=== PATIENT | male | born 2000 | race Caucasian/White ===

== ENCOUNTER 2020-07-20 20:18 | Observation (INO) ==
[2020-07-20] MEDS ORDERED: ONDANSETRON INJ 2 MG/ML 2 ML VIAL IV STA (21:11)
[2020-07-20] MEDS ORDERED: KETOROLAC TROMETHAMINE 15 MG/ML VIAL IV STA (21:11)
[2020-07-20] MEDS ORDERED: MoRPHine SULFATE 4 MG/ML 1 ML CARP\\VIAL IV STA (21:11)
--- NOTE | 2020-07-20 21:14 | Emergency Department Note ---
Impression & Plan RLQ abdominal pain, Appendicitis, Leukocytosis ED Provider Note NAME: SABINA CRANE AGE: 20 SEX: M : 2000 ARRIVES VIA: Walk-In INFORMANT: [Patient] ED PROVIDER(S): [Frederic Dai MD] CHIEF COMPLAINT: Abdominal pain HISTORY OF PRESENT ILLNESS: The patient is a 20-year-old male presents to the ED with lower abdominal pain, mostly right-sided. Patient has had the pain for 3 or 4 days. He has pain to move and to flex the abdominal muscles. The pain is a 7 on a scale 1 out of 10. The patient felt that he was constipated. He has been using MiraLAX without much of a result. He has some nausea but he took a Zofran at home and this helped. There has been no fever although he has had some hot and cold flashes. No urinary complaints. No cough or cold or congestion. No Covid exposures. He has no surgical history. REVIEW OF SYSTEMS: See HPI for pertinent positives and negatives. A total of ten systems were reviewed and were otherwise negative. PMHx/PSHx: See Below SOCIAL HISTORY: See Below. PHYSICAL EXAM: GENERAL: Patient is in mild distress from pain. HEENT: No acute trauma, normocephalic atraumatic, mucous membranes moist, no nasal congestion, no scleral icterus. NECK: No stridor, no adenopathy, no meningismus, trachea is midline. LUNGS: Clear to auscultation bilaterally, no wheeze, no rhonchi, breath sounds equal. HEART: Without murmurs gallops or rubs, regular rate and rhythm. ABDOMEN: Soft, there is localized peritonitis in the right lower quadrant, there is some mild pain to palpate the left lower quadrant, bowel sounds positive, no hernias. EXTREMITIES: No cyanosis or edema, full range of motion of all the joints without pain or difficulty, no signs for acute trauma. NEUROLOGIC: Oriented x 3, no acute motor or sensory deficits, no focal weakness. SKIN: No rash, no jaundice, no diaphoresis. Groin: He is circumcised, no scrotal erythema or testicular soreness. DIFFERENTIAL DIAGNOSIS: Appendicitis, testicular torsion, infections, diverticulitis, UTI, obstruction, mesenteric ischemia, aortic pathology, inflammatory bowel disease, renal colic, PUD, pancreatitis, biliary pathology, hernia, volvulus, constipation, as well as other pathologies. EMERGENCY DEPARTMENT COURSE/PROCEDURES: MEDICAL DECISION MAKING: There is a moderate leukocytosis at 18,000, this would be consistent with infection. There is a normal hemoglobin and platelet count. No significant electrolyte abnormality or kidney failure. No worrisome liver enzyme elevation. No evidence for pancreatitis. Abdominal and pelvis CT shows evidence for an enlarged appendix with an appendicolith. The CT findings were consistent with acute appendicitis. No abscess seen. Some scant free fluid was noted. On exam, the patient had localized peritonitis in the right lower quadrant. Patient received IV morphine for pain, IV Zofran for nausea. He received 1 L of IV saline for hydration. He was given IV Toradol for pain control, he received IV Zosyn as antibiotic coverage. He requested a dose of antianxiety medication as he carries a history of anxiety--he received 1 mg of IV Ativan. I spoke to the patient about his findings, I did speak with case management. The patient is going require surgical intervention. The on-call surgeon was consulted. Past Med/Surg History Medical History Anxiety Social History Smoking Status: Current every day smoker Tobacco Type: Cigarettes Feels Safe at Home: Yes Allergies Allergies Allergy/AdvReac Type Severity Reaction Status Date / Time BEES Allergy Severe Anaphylaxis Uncoded 07/20/20 22:45 Home Meds Home Medications Medication Instructions Recorded Confirmed citalopram 0 mg PO DAILY 07/20/20 07/20/20 hydroxyzine pamoate 25 mg PO DAILY PRN 07/20/20 07/20/20 methocarbamol 500 mg PO UD PRN 07/20/20 07/20/20 polyethylene glycol 3350 [Miralax] 17 g PO DAILY PRN 07/20/20 07/20/20 Results & Data (ED) Vital Signs Vital Signs - 24 hr 07/20/20 20:23 07/20/20 21:32 07/20/20 23:01 Temperature 37.0 C Temperature Source Oral Pulse Rate 78 Pulse Rate [Finger] 68 77 Respiratory Rate 20 20 16 Respiratory Effort / Characteristics Non-Labored Spontaneous Respiratory Depth Normal Normal Normal Respiratory Pattern Agonal Blood Pressure 127/74 Blood Pressure [Left Arm] 138/73 127/56 L Blood Pressure Mean 91 Blood Pressure Mean [Left Arm] 94 79 Pulse Oximetry 97 100 98 Oxygen Delivery Method Room Air Room Air Room Air Sepsis Recent Fever Within 48 Hours No Sepsis New/Unexplained Change in Mental Status N/A Sepsis Action Taken by Nursing No Action Required Home Medications Current Medication List: was personally reviewed by me Laboratory Data Attestation: I reviewed the patient's lab results. Result diagrams: 07/20/20 21:07/20/20 21: Lab Results 07/20/20 07/20/20 Range/Units 21: 21: WBC 18.01 H (4.8-10.8) K/uL RBC 6.08 (4.7-6.1) M/uL Hgb 18.0 (14.0-18.0) g/dL Hct 50.8 (42-52) % MCV 83.6 (80-100) fL MCH 29.6 (25-34) pg MCHC 35.4 (32-36) g/dL RDW Std Deviation 40.1 (36.4-46.3) fL RDW Coeff of Mimi 13.2 (11.5-14.5) % Plt Count 233 (130-400) K/uL MPV 11.1 H (7.4-10.4) fL Immature Gran % (Auto) 0.2 % Neut % (Auto) 71.9 % Lymph % (Auto) 17.5 % [place] % (Auto) 8.8 % Eos % (Auto) 1.4 % Baso % (Auto) 0.2 % Neut # (Auto) 12.93 H (1.4-6.5) K/uL Lymph # (Auto) 3.16 (1.2-3.4) K/uL [place] # (Auto) 1.59 H (0.11-0.59) K/uL Eos # (Auto) 0.26 (0-0.5) K/uL Baso # (Auto) 0.03 (0-0.2) K/uL Immature Gran # (Auto) 0.04 H (0.00-0.02) K/uL Sodium 138 (136-145) mmol/L Potassium 4.1 (3.5-5.1) mmol/L Chloride 104 (98-107) mmol/L Carbon Dioxide 28 (21-32) mmol/L Anion Gap 6.0 (3-11) BUN 11 (7-18) mg/dl Creatinine 1.17 (0.6-1.4) mg/dl Est Cr Clr Drug Dosing 118.1 ml/min Est GFR ( Amer) 102.7 Est GFR (Non-Af Amer) 88.6 BUN/Creatinine Ratio 9.1 L (10-20) Glucose 93 (70-99) mg/dl Calcium 10.1 (8.5-10.1) mg/dl Total Bilirubin 1.0 (0.2-1) mg/dl AST 11 L (15-37) U/L ALT 18 (12-78) U/L Alkaline Phosphatase 100 (45-117) U/L Total Protein 9.0 H (6.4-8.2) gm/dl Albumin 4.6 (3.4-5.0) gm/dl Globulin 4.4 H (2.5-4.0) gm/dl Albumin/Globulin Ratio 1.0 (0.9-2) Lipase 74 (73-393) U/L Administered Medications Piperacillin Sod/Tazobactam Sod (Zosyn) 4.5 gm in 120 mls @ 240 mls/hr IV NOW ONE Stop: 07/20/20 23:22 Last Admin: 07/20/20 23:00 Dose: 240 mls/hr Documented by: [id number] Discontinued Medications Sodium Chloride (Nss 1000ml) 1,000 mls @ 999 mls/hr IV .Q1H1M REFUGIO Stop: 07/20/20 22:15 Last Infusion: 07/20/20 22:29 Dose: 0 mls/hr Documented by: [id number] Admin: 07/20/20 21:28 Dose: 999 mls/hr Documented by: [id number] Ioversol (Ioversol 100ml) 93 ml IV ONCE ONE Stop: 07/20/20 22:31 Last Admin: 07/20/20 22:30 Dose: 93 ml Documented by: [id number] Ketorolac Tromethamine (Ketorolac Tromethamine 15 Mg/Ml Vial) 15 mg IV NOW STA Stop: 07/20/20 21:12 Last Admin: 07/20/20 21:29 Dose: 15 mg Documented by: [id number] Morphine Sulfate (Morphine Sulfate 4 Mg/Ml 1 Ml Carp\Vial) 4 mg IV NOW STA Stop: 02/18/21 21:12 Last Admin: 07/20/20 21:29 Dose: 4 mg Documented by: [id number] Ondansetron HCl (Ondansetron Inj 2 Mg/Ml 2 Ml Vial) 4 mg IV NOW STA Stop: 07/20/20 21:12 Last Admin: 07/20/20 21:29 Dose: 4 mg Documented by: [id number] Imaging Data Radiologist's Impression: Abdominal and pelvis CT: There is some splenomegaly. There is a coarse right adrenal calcification. There is an enlarged fluid filled appendix measuring 17 mm with a 6 mm appendicolith with some periap pendiceal stranding. There is thickening of the adjacent cecum and distal ileum. There is mild free fluid in the lower pelvis, no discrete periappendiceal abscess. Discharge Plan Visit Data Chief Complaint: Constipation Stated Complaint: UNABLE TO VOID ED Provider: Frederic Dai Discharge Problem: RLQ abdominal pain, Appendicitis, Leukocytosis Patient Disposition: Admitted As Inpatient Condition: Fair Forms Stand Alone Forms: [facility] [employer] Prescriptions Prescriptions: No Action methocarbamol 500 mg Tablet 500 mg PO UD PRN (Reason: Muscle Pain) RF: 0 polyethylene glycol 3350 [Miralax] 17 gram Powder In Packet 17 g PO DAILY PRN (Reason: Constipation) RF: 0 citalopram 10 mg Tablet 0 mg PO DAILY RF: 0 hydroxyzine pamoate 25 mg Capsule 25 mg PO DAILY PRN (Reason: Anxiety) RF: 0 Referrals Referrals: Vin Panda MD [Primary Care Provider] - Discharge Problem: Appendicitis Qualifiers: Appendicitis type: acute appendicitis Acute appendicitis type: with localized peritonitis Appendicitis gangrene presence: unspecified whether gangrene present Appendicitis perforation presence: without perforation Appendicitis abscess presence: without abscess Qualified Code(s): K35.30 - Acute appendicitis with localized peritonitis, without perforation or gangrene Leukocytosis Qualifiers: Leukocytosis type: unspecified Qualified Code(s): D72.829 - Elevated white blood cell count, unspecified
[2020-07-20] MEDS ORDERED: SODIUM CHLORIDE 0.9% 1000ML 1,000 ML IV SCH (21:15)
[2020-07-20 21:47] LABS: Basophils # (auto) 0.03 K/uL (0-0.2); Basophils % (auto) 0.2 %; Eosinophils # (auto) 0.26 K/uL (0-0.5); Eosinophils % (auto) 1.4 %; Hematocrit (blood only) 50.8 % (42-52); Immature Granulocytes # (auto) 0.04 K/uL (0.00-0.02); Immature Granulocytes % (auto) 0.2 %; Lymphocytes # (auto) 3.16 K/uL (1.2-3.4); Lymphocytes % (auto) 17.5 %; Mean Corpuscular Hemoglobin 29.6 pg (25-34); Mean Corpuscular Hgb Conc 35.4 g/dL (32-36); Mean Corpuscular Volume 83.6 fL (80-100); Mean Platelet Volume 11.1 fL (7.4-10.4); Monocytes # (auto) 1.59 K/uL (0.11-0.59); Monocytes % (auto) 8.8 %; Neutrophils # (auto) 12.93 K/uL (1.4-6.5); Neutrophils % (auto) 71.9 %; Platelet Count 233 K/uL (130-400); RDW Coefficient of Variation 13.2 % (11.5-14.5); RDW Standard Deviation 40.1 fL (36.4-46.3); Red Blood Count 6.08 M/uL (4.7-6.1); White Blood Count 18.01 K/uL (4.8-10.8)
[2020-07-20 22:05] LABS: Albumin Level 4.6 gm/dl (3.4-5.0); BUN Creatinine Ratio 9.1 (10-20); Calcium 10.1 mg/dl (8.5-10.1); Creatinine Clr Calc Pharmacy 118.1 ml/min; Est GFR (African American) 102.7; Est GFR (Non-African American) 88.6; Potassium 4.1 mmol/L (3.5-5.1)
[2020-07-20 22:08] LABS: Globulin 4.4 gm/dl (2.5-4.0)
[2020-07-20] MEDS ORDERED: OPTIRAY 320 100ml IV ONE (22:30)
[2020-07-20] MEDS ORDERED: PIPERACILL/TAZOBAC CONSULT ACTIVE PRN (22:53)
[2020-07-20] MEDS ORDERED: PIPERACILLIN/TAZOBACTAM 4.5 GM/120 ML BAG IV ONE (22:53)
[2020-07-20] MEDS ORDERED: LORazepam 1 MG/2 ML VIAL IV STA (23:04)
[2020-07-20] MEDS ORDERED: MEPERIDINE HCL 25 MG/ML CARP/VIAL IV PRN (23:55)
[2020-07-20] MEDS ORDERED: LABETALOL HCL IV 5 MG/ML 20ML IV PRN (23:55)
[2020-07-20] MEDS ORDERED: PHENYLEPHRINE 100MCG/ML 5ML SYR IV PRN (23:55)
[2020-07-20] MEDS ORDERED: HYDROmorphone INJ 1 MG/ML SYRINGE IV PRN (23:55)
[2020-07-20] MEDS ORDERED: ATROPINE SULFATE 0.1 MG/ML 10ML SYR IV PRN (23:55)
[2020-07-20] MEDS ORDERED: ONDANSETRON INJ 2 MG/ML 2 ML VIAL IV PRN (23:55)
[2020-07-20] MEDS ORDERED: ePHEDrine sulfate 50 MG/ML AMP IV PRN (23:55)
[2020-07-20] MEDS ORDERED: fentaNYL citrate 100 MCG/2 ML VIAL IV PRN (23:55)
[2020-07-21] MEDS ORDERED: BUPIVACAINE/EPINEPHRINE 0.5% MPF 1:200,000 30 ML VIAL ONE
--- NOTE | 2020-07-21 00:03 | History & Physical Report ---
Date of Service July 20, 2020 Assessment & Plan (1) Appendicitis: -Admit to surgery -Keep NPO -IVF -CT images and results reviewed personally -To OR today for laparoscopic appendectomy, possible open -Consent obtained, risks discussed including bleeding, infection, leak, abscess, ileus History of Present Illness Chief Complaint: Abdominal pain Primary Care Provider: Vin Panda MD This is a 20 yo male who presents for evaluation of abdominal pain. He came to the ER with 3-4 days of abdominal pain and constipation. He describes pain as right sided, sharp, no radiation. He was taking Miralax which did not help him have a BM. +Subjective fevers and chills. No N/V. No dysuria. No melena or hematochezia. Allergies Allergy/AdvReac Type Severity Reaction Status Date / Time BEES Allergy Severe Anaphylaxis Uncoded 07/20/20 22:45 Home Medications Medication Instructions Recorded Confirmed Type citalopram 0 mg PO DAILY 07/20/20 07/20/20 History hydroxyzine pamoate 25 mg PO DAILY PRN 07/20/20 07/20/20 History methocarbamol 500 mg PO UD PRN 07/20/20 07/20/20 History polyethylene glycol 3350 [Miralax] 17 g PO DAILY PRN 07/20/20 07/20/20 History Past Med/Surg History Medical History Anxiety Smoker Social History Smoking Status: Current every day smoker Tobacco Type: Cigarettes Feels Safe at Home: Yes Review of Systems Constitutional: + fever and + chills Eyes: no worsening vision Ear, Nose, Mouth, Throat: no ear pain and no hearing loss Respiratory: no cough and no dyspnea Cardiovascular: no chest pain and no dyspnea on exertion Gastrointestinal: + abdominal pain and + constipation; no nausea, no vomiting, no diarrhea/loose stools, no blood in stools and no melena Genitourinary: no dysuria and no difficulty urinating Musculoskeletal: no back pain and no neck pain Integumentary: no rash and no lesions Neurologic: no falls, no paralysis and no numbness Psychiatric: + anxiety; no behavioral changes and no depression Hematologic / Lymphatic: no easy bleeding and no easy bruising Physical Exam Constitutional: WD/WN, vitals as above Eyes: PERRL, conjunctivae normal, anicteric sclerae ENMT: external ear and nose normal, oropharynx normal Neck: trachea midline, no thyromegaly Respiratory: normal respiratory effort, lungs clear to auscultation Cardiovascular: RRR, no murmur, no edema Gastrointestinal (Abdomen): Inspection/Auscultation: abdomen normal to inspection; abdomen not distended Percussion/Palpation: + abdomen tender (RLQ, +McBurney's), + guarding and abdomen soft; abdomen not rigid Musculoskeletal: no cyanosis or clubbing, extremities motor strength 5/5 Skin: no rashes, warm and dry Neurologic: PERRL, EOMI, accommodation nl, no face palsy, no dysarthria Psychiatric: A+Ox3, euthymic affect Lymphatic: no inguinal lymphadenopathy Results & Data Results & Data ([facility]) Vital Signs (Past 12 Hours) Vital Signs Temp Pulse Pulse Resp BP BP Pulse Ox 07/20/20 23:01 77 16 127/56 L 98 07/20/20 21:32 68 20 138/73 100 07/20/20 20:23 37.0 C 78 20 127/[address] A/P 07/20/20 17mm dilated fluid filled appendix with appendicolith and josselyn-appendiceal fat stranding consistent with acute appendicitis PG Care Time/CCT Total # of Minutes Spent Total Time Spent with Patient: Total time spent is greater than 50% in coordination of care (as documented) at patient's floor/unit and/or counseling patient: Coding Level of Care Code 72179 OBS Care - Level 2 Diagnoses Appendicitis K35.30 Acute appendicitis type: with localized peritonitis Appendicitis abscess presence: without abscess Appendicitis gangrene presence: unspecified whether gangrene present Appendicitis perforation presence: unspecified whether perforation present Appendicitis type: acute appendicitis (1) Appendicitis Acute appendicitis type: with localized peritonitis Appendicitis abscess presence: without abscess Appendicitis gangrene presence: unspecified whether gangrene present Appendicitis perforation presence: unspecified whether perforation present Appendicitis type: acute appendicitis Qualified Code(s): K35.30 - Acute appendicitis with localized peritonitis, without perforation or gangrene
--- NOTE | 2020-07-21 00:16 | Anesthesiology Consultation ---
Date of Service July 21, 2020 Covid 19 negative today. Assessment & Plan (1) Encounter for pre-operative examination: Chart Review Chart Review: Acceptable Risk for Surgery and Patient NOT seen in Pre Admission Testing Consults Requested none History Surgery Operation Date: 07/20/20 23:55 Proposed Procedures p Laparoscopic Appendectomy - Omero Barnett DO Height/Weight Height: 5 ft 11 in Weight: 96.1 kg Allergies Allergy/AdvReac Type Severity Reaction Status Date / Time BEES Allergy Severe Anaphylaxis Uncoded 07/20/20 22:45 Medications Home Medications Medication Instructions Recorded Confirmed Last Taken citalopram 0 mg PO DAILY 07/20/20 07/20/20 Unknown hydroxyzine pamoate 25 mg PO DAILY PRN 07/20/20 07/20/20 Unknown methocarbamol 500 mg PO UD PRN 07/20/20 07/20/20 Unknown polyethylene glycol 3350 [Miralax] 17 g PO DAILY PRN 07/20/20 07/20/20 Unknown NPO Date Last Intake of Fluids: 07/20/20 Time Last Intake of Fluids: 20:00 Date Last Intake of Solids: 07/19/20 Time Last Intake of Solids: 22:00 Past Medical History Medical History Anxiety Smoker Social History Smoking Status: Current every day smoker Physical Exam Vital Signs Last Vital Signs Temp 37.0 C 07/20/20 20:23 Pulse 68 07/21/20 00:10 Resp 16 07/21/20 00:10 BP 114/76 07/21/20 00:10 Pulse Ox 100 07/21/20 00:10 Testing Laboratory Results 07/20/20 21:26 07/20/20 21:26
[2020-07-21] MEDS ORDERED: MIDAZOLAM HCL 1 MG/ML 2ML VIAL ONE (00:18)
[2020-07-21] MEDS ORDERED: fentaNYL citrate 100 MCG/2 ML VIAL ONE ×3 (00:19→03:01)
[2020-07-21] MEDS ORDERED: LIDOCAINE HCL 2% 2 ML VIAL/AMP(20MG/ML) INFIL ONE (00:22)
[2020-07-21] MEDS ORDERED: SUCCINYLCHOLINE CHLORIDE 20 MG/ML 10 ML VIAL IV ONE (00:22)
[2020-07-21] MEDS ORDERED: PROPOFOL IV EMULSION 10 MG/ML 20 ML VIAL IV ONE (00:22)
[2020-07-21] MEDS ORDERED: ONDANSETRON INJ 2 MG/ML 2 ML VIAL ONE (00:32)
[2020-07-21] MEDS ORDERED: DEXAMETHASONE SOD INJ 4 MG/ML VIAL ONE (00:32)
[2020-07-21] MEDS ORDERED: ROCURONIUM BROMIDE 10 MG/ML 5 ML VIAL IV ONE (00:32)
[2020-07-21] MEDS ORDERED: NEOSTIGMINE METHYLSULFATE 5 MG/5 ML SYR ONE (01:13)
[2020-07-21] MEDS ORDERED: GLYCOPYRROLATE 0.2 MG/ML VIAL ONE ×2 (01:13→02:22)
[2020-07-21] MEDS ORDERED: KETOROLAC 30 MG/ML VIAL ONE (02:27)
--- NOTE | 2020-07-21 02:37 | Post Operative Brief Note ---
PG Immediate Post Op with CF Date of Surgery July 21, 2020 Pre & Post Diagnosis Operation Date: 07/20/20 23:55 Pre-Op Diagnosis: Acute Appendicitis Post-Op Diagnosis: Acute Gangrenous Appendicitis with perforation I identified the patient and participated in the time-out.: Yes Procedure Operation Date: 07/20/20 23:55 Actual Procedures p Laparoscopic Appendectomy(Not Applicable) - Omero Barnett DO Surgeon Omero Barnett DO Seed Analysis Laboratory Assistant None Estimated Blood Loss 5 Findings See Below Acutely inflamed, dilated, gangrenous appendix with perforation of the mid portion of the appendix Fluids 1500ml crystalloid Specimens Specimen Description: A: Appendix Drains Rose Catheter Anesthesia Type General Complications none Disposition Disposition: Recovery Room
--- NOTE | 2020-07-21 02:40 | Operative Report ---
PG Post Operative Report Pre & Post Diagnosis Operation Date: 07/20/20 23:55 Pre-Op Diagnosis: Acute Appendicitis Post-Op Diagnosis: Acute Gangrenous Appendicitis with perforation I identified the patient and participated in the time-out.: Yes Procedure Operation Date: 07/20/20 23:55 Actual Procedures p Laparoscopic Appendectomy(Not Applicable) - Omero Barnett DO Surgeon Omero Barnett DO Tobacco Drummer None Estimated Blood Loss 5 Findings See Below Acutely inflamed, dilated gangrenous appendix with perforation Fluids 1500mL Crystalloid Specimens Appendix to pathology Drains None Anesthesia Type General Complications none Disposition Disposition: Recovery Room Indications 20 yo male with 3-4 days of abdominal pain and clinical and CT evidence of acute appendicitis Description of Procedure The patient was brought to the OR and placed in the supine position and SCD's placed. At this time he underwent general endotracheal anesthesia without incident. At this time a Rose catheter was placed under sterile conditions. His abdomen was prepped and draped in the usual sterile fashion. He was given appropriate pre-operative antibiotics. A timeout was called, the procedure was verified as Laparoscopic appendectomy, possible open. Surgical, anesthesia and nursing teams agreed and the procedure was begun. After injection of 0.25% Marcaine with epinephrine, a supraumbilical incision was made using a #11 blade scalpel and carried down to the fascia with a hemostat. The abdomen was then elevated with towel clamps and entered using the Veress needle confirming position using the saline drop test. Pneumoperitoneum was established and 5mm trocar was placed. Laparoscope was introduced. No injury was seen from our entrance to the abdomen. At this time a 5mm suprapubic port and 12mm LLQ port were placed under direct visualization. The patient was placed in Trendelenburg and rotated to the left. At this time the appendix was visualized and the tip was freed and elevated toward the abdominal wall. The appendix was inflamed, di lated and had a jonny perforation of the proximal third on the antimesenteric side. A window was created in the mesoappendix at the base of the appendix. A 45mm purple load stapler was then fired across the base of the appendix which appeared healthy. The mesoappendix was then taken using Harmonic device. The appendix was then placed in an Endocatch bag and removed through the LLQ port site. Staple line was inspected and was intact. Hemostasis was complete. A small amount of purulent fluid was suctioned out of the RLQ and pelvis. At this point the omentum was placed over the staple line. The 12 mm port was then closed at the fascial level using a 0 Vicryl suture using the suture passer. All ports were removed under direct visualization and no bleeding was noted. The abdomen was desufflated and the skin was closed using 4-0 Monocryl in a subcuticular fashion. Sterile dressings were applied. Rose catheter was removed. The patient was then awakened from anesthesia having remained stable throughout the entire case and transported to PACU. All needle and sponge counts were correct x 2. I attest to the content of the Intraoperative Record and any orders documented therein. Any exceptions are noted below.
--- NOTE | 2020-07-21 02:59 | Anesthesiology Progress Note ---
Date of Service July 21, 2020 Anesthesia Post Procedure Vital Signs Vital Signs: Temp Pulse Pulse Resp BP BP Pulse Ox 07/21/20 02:55 36.9 C 89 20 145/72 H 100 07/21/20 00:10 68 16 114/76 100 07/20/20 23:01 77 16 127/56 L 98 07/20/20 21:32 68 20 138/73 100 07/20/20 20:23 37.0 C 78 20 127/74 97 Pain Intensity Abdomen: Pain Intensity: 2 Transfer of Care Handoff Completed per policy Notes Mental Status: alert / awake / arousable Patient Amnestic to Procedure: Yes Nausea / Vomiting: adequately controlled Pain: adequately controlled Airway Patency, RR, SpO2: stable & adequate BP & HR: stable & adequate Hydration State: stable & adequate Anesthetic Complications: no major complications apparent and Pt Satisfied with anesthetic care
[2020-07-21] MEDS ORDERED: HYDROmorphone INJ 0.5 MG/0.5 ML SYR ONE (03:27)
[2020-07-21] MEDS ORDERED: MoRPHine SULFATE 2 MG/ML CARP IV PRN (03:49)
[2020-07-21] MEDS ORDERED: MoRPHine SULFATE 4 MG/ML 1 ML CARP\\VIAL IV PRN (03:49)
[2020-07-21] MEDS ORDERED: ACETAMINOPHEN 325 MG TAB PO PRN (03:49)
[2020-07-21] MEDS ORDERED: PIPERACILL/TAZOBAC CONSULT ACTIVE PRN (03:49)
[2020-07-21] MEDS ORDERED: ONDANSETRON INJ 2 MG/ML 2 ML VIAL IV PRN (03:49)
[2020-07-21] MEDS ORDERED: PIPERACILLIN/TAZOBACTAM 3.375 GM in DEXTROSE 5% 100 ML IV ONE (04:00)
[2020-07-21] MEDS: LACTATED RINGER'S 1,000 ML IV SCH ×2 (04:48→14:38)
[2020-07-21] MEDS: PIPERACILLIN/TAZOBACTAM 3.375 GM in DEXTROSE 5% 100 ML IV SCH ×3 (05:01→20:27)
[2020-07-21] MEDS ORDERED: LORazepam 1 MG TAB PO PRN (07:27)
[2020-07-21] MEDS: oxyCODONE HCL IR 5 MG TAB (IMMEDIATE RELEASE) PO PRN (07:28)
--- NOTE | 2020-07-21 07:28 | CT Scan Report ---
ABDOMEN AND PELVIS CT WITH IV CONTRAST CT DOSE: 453.90 mGy.cm HISTORY: Right lower quadrant abdominal pain. TECHNIQUE: Multiaxial CT images of the abdomen and pelvis were performed following the use of intrave nous contrast. A dose lowering technique was utilized adhering to the principles of ALARA. COMPARISON STUDY: None. FINDINGS: The lung bases are clear. No pneumoperitoneum. No pneumatosis. No fractures within the visu alized osseous structures. The liver, gallbladder, kidneys, left adrenal gland, and pancreas are unre markable. The spleen is enlarged measuring 14 cm in length. No retroperitoneal lymphadenopathy. Dariela l caliber abdominal aorta. The bladder is unremarkable. Trace pelvic free fluid. No evidence for derrek l obstruction. Fluid-filled colon. Focal thickening at the cecum. There is also dilated and fluid-malena led appendix with periappendiceal fat stranding. There is a 6 mm appendicolith within the proximal ap pendix. Therefore, these findings are consistent with acute appendicitis. The appendix measures up to 13 mm in diameter. No perforation or abscess identified at this time. Dense calcification within the right adrenal gland. IMPRESSION: 1. Acute appendicitis. There is a 6 mm appendicolith within the proximal appendix. 2. Trace pelvic free fluid. This may be reactive. 3. Splenomegaly. ACT 112: Negative or not required by law. Electronically signed by: Conrado Busch M.D. 07/21/2020 7:27 AM
[2020-07-21] MEDS: CITALOPRAM 20 MG TAB PO SCH (10:03)
[2020-07-21 10:05] LABS: Basophils # (auto) 0.01 K/uL (0-0.2); Basophils % (auto) 0.1 %; Hematocrit (blood only) 43.3 % (42-52); Hemoglobin 15.6 g/dL (14.0-18.0); Immature Granulocytes # (auto) 0.03 K/uL (0.00-0.02); Immature Granulocytes % (auto) 0.2 %; Lymphocytes # (auto) 0.99 K/uL (1.2-3.4); Lymphocytes % (auto) 6.2 %; Mean Corpuscular Hemoglobin 29.7 pg (25-34); Mean Corpuscular Volume 82.5 fL (80-100); Mean Platelet Volume 10.2 fL (7.4-10.4); Monocytes # (auto) 1.11 K/uL (0.11-0.59); Neutrophils # (auto) 13.73 K/uL (1.4-6.5); Neutrophils % (auto) 86.5 %; Platelet Count 173 K/uL (130-400); RDW Standard Deviation 39.2 fL (36.4-46.3); Red Blood Count 5.25 M/uL (4.7-6.1); White Blood Count 15.87 K/uL (4.8-10.8)
[2020-07-21 10:24] LABS: Appearance Urine Clear (Clear); Bilirubin Urine Negative (Negative); Blood Urine Negative (Negative); Color Urine Yellow; Glucose Urine UA Negative (Negative); Ketones Urine Trace (Negative); Leukocyte Esterase Urine Negative (Negative); Nitrite Urine Negative (Negative); Protein Urine Negative (Negative); Specific Gravity Urine 1.013 (1.000-1.030); Urobilinogen Urine Negative (Negative); pH Urine 6.5 (4.5-7.5)
[2020-07-21] MEDS: KETOROLAC 30 MG/ML VIAL IV PRN (11:23)
--- NOTE | 2020-07-21 12:24 | Surgery Progress Note ---
Date of Service July 21, 2020 Assessment & Plan (1) Appendicitis: -Continue clears for today, he is a bit distended -Continue Zosyn -Trend WBC -Encourage ambulation/IS -Pain control PRN -Colace BID Admission and Anticipated Discharge Date Admission Date: July 21, 2020 Subjective Pt seen and examined. Afebrile. Tolerating clears. Pain is not controlled wit h morphine. Physical Exam Constitutional: WD/WN, vitals as above Gastrointestinal (Abdomen): Inspection/Auscultation: + abdomen distended Percussion/Palpation: + abdomen tender (appropriately TTP) and abdomen soft; no guarding Results & Data ([facility]) Vital Signs (Past 12 Hours) Vital Signs Temp Pulse Pulse Resp BP BP Pulse Ox 07/21/20 11:00 36.5 C 59 L 14 115/68 95 07/21/20 07:07 98 H 07/21/20 06:58 36.7 C 150 H 16 115/66 98 07/21/20 05:43 36.9 C 104 H 18 118/75 99 07/21/20 04:54 36.7 C 79 15 132/86 96 07/21/20 04:19 36.7 C 94 H 18 132/82 99 07/21/20 03:50 36.7 C 71 20 118/75 98 07/21/20 03:15 70 20 120/81 99 07/21/20 03:05 79 20 98/78 L 100 07/21/20 02:55 36.9 C 89 20 145/72 H 100 07/21/20 02:45 36.9 C 73 20 136/84 100 PG Care Time/CCT Total # of Minutes Spent Total Time Spent with Patient: Total time spent is greater than 50% in coordination of care (as documented) at patient's floor/unit and/or counseling patient: Coding Level of Care Code None Diagnoses Appendicitis K35.32 Acute appendicitis type: with localized peritonitis Appendicitis abscess presence: without abscess Appendicitis gangrene presence: with gangrene Appendicitis perforation presence: with perforation Appendicitis type: acute appendicitis (1) Appendicitis Acute appendicitis type: with localized peritonitis Appendicitis abscess presence: without abscess Appendicitis gangrene presence: with gangrene Appendicitis perforation presence: with perforation Appendicitis type: acute appendicitis Qualified Code(s): K35.32 - Acute appendicitis with perforation and localized peritonitis, without abscess
[2020-07-21] MEDS: HYDROmorphone INJ 0.5 MG/0.5 ML SYR IV PRN ×4 (14:33→21:45)
[2020-07-21] MEDS: DOCUSATE SODIUM 100 MG CAP PO SCH (21:46)
[2020-07-22] MEDS: LACTATED RINGER'S 1,000 ML IV SCH ×2 (00:16→10:15)
[2020-07-22] MEDS: HYDROmorphone INJ 0.5 MG/0.5 ML SYR IV PRN (00:16)
[2020-07-22] MEDS: KETOROLAC 30 MG/ML VIAL IV PRN (00:46)
[2020-07-22] MEDS: PIPERACILLIN/TAZOBACTAM 3.375 GM in DEXTROSE 5% 100 ML IV SCH (03:59)
[2020-07-22 06:56] LABS: Basophils # (auto) 0.02 K/uL (0-0.2); Basophils % (auto) 0.2 %; Eosinophils # (auto) 0.15 K/uL (0-0.5); Eosinophils % (auto) 1.4 %; Hematocrit (blood only) 38.5 % (42-52); Hemoglobin 13.3 g/dL (14.0-18.0); Immature Granulocytes # (auto) 0.01 K/uL (0.00-0.02); Immature Granulocytes % (auto) 0.1 %; Lymphocytes # (auto) 1.77 K/uL (1.2-3.4); Lymphocytes % (auto) 16.2 %; Mean Corpuscular Hgb Conc 34.5 g/dL (32-36); Mean Corpuscular Volume 84.1 fL (80-100); Mean Platelet Volume 10.6 fL (7.4-10.4); Monocytes # (auto) 1.11 K/uL (0.11-0.59); Monocytes % (auto) 10.2 %; Neutrophils # (auto) 7.85 K/uL (1.4-6.5); Neutrophils % (auto) 71.9 %; Platelet Count 164 K/uL (130-400); RDW Coefficient of Variation 13.3 % (11.5-14.5); RDW Standard Deviation 40.3 fL (36.4-46.3); Red Blood Count 4.58 M/uL (4.7-6.1); White Blood Count 10.91 K/uL (4.8-10.8)
[2020-07-22] MEDS: DOCUSATE SODIUM 100 MG CAP PO SCH (09:36)
[2020-07-22] MEDS: CITALOPRAM 20 MG TAB PO SCH (09:36)
--- NOTE | 2020-07-22 10:27 | Surgery Progress Note ---
Date of Service July 22, 2020 Assessment & Plan (1) Status post laparoscopic appendectomy: Status post laparoscopic appendectomy for perforated appendicitis, doing well, white count downtrending Discharged home 7 days antibiotics Follow-up with Dr. Barnett in 2 weeks Activity restrictions and wound care instructions reviewed Return precautions given Admission and Anticipated Discharge Date Admission Date: July 21, 2020 Subjective 20-year-old male status post laparoscopic appendectomy with perforation, POD #2. Feeling better, tolerated diet, no fevers. Physical Exam Constitutional: WD/WN, vitals as above Gastrointestinal (Abdomen): normal bowel sounds, soft, nontender, no hepatosplenomegaly Inspection/Auscultation: + abdominal surgical incision (Healing well) Results & Data ([facility]) Vital Signs (Past 12 Hours) Vital Signs Temp Pulse Resp BP Pulse Ox 07/22/20 08:10 36.7 C 59 L 17 119/74 97 07/22/20 03:51 36.5 C 56 L 16 116/70 98 PG Care Time/CCT Total # of Minutes Spent Total Time Spent with Patient: Total time spent is greater than 50% in coordination of care (as documented) at patient's floor/unit and/or counseling patient: Coding Level of Care Code None Diagnoses Status post laparoscopic appendectomy Z90.49
[2020-07-22] MEDS: oxyCODONE HCL IR 5 MG TAB (IMMEDIATE RELEASE) PO PRN (10:54)
--- NOTE | 2020-07-24 09:49 | Discharge Summary ---
Date of Service July 24, 2020 Admission HPI Per Admitting Provider This is a 20 yo male who presents for evaluation of abdominal pain. He came to the ER with 3-4 days of abdominal pain and constipation. He describes pain as right sided, sharp, no radiation. He was taking Miralax which did not help him have a BM. +Subjective fevers and chills. No N/V. No dysuria. No melena or hematochezia. Principal Diagnosis Acute appendicitis with perforation Discharge Exam Constitutional WD/WN, vitals as above Gastrointestinal (Abdomen) Percussion/Palpation: + abdomen tender (appropriately TTP) and abdomen soft Dressings c/d/i Discharge Data Allergies Allergy/AdvReac Type Severity Reaction Status Date / Time BEES Allergy Severe Anaphylaxis Uncoded 07/20/20 22:45 Consultations 07/20/20 23:11 ED Decision to Admit Stat Procedures Performed Operation Date: 07/20/20 23:55 Actual Procedures p Laparoscopic Appendectomy(Not Applicable) - Omero Barnett, Ordered Studies 07/20/20 21:11 CT abd pelvis IV con only Urgent Hospital Course (1) Appendicitis: Patient was admitted with acute appendicitis and taken to OR for lapa roscopic appendectomy which he tolerated well. His appendix was perforated at the time of operation and was kept on IV ABX post-operatively. His WBC went from 18 at admission to 11 at discharge. On POD#2 he was tolerating a diet, afebrile, his pain was controlled and stable for discharge home on 7 days of Augmentin. He will follow up in 2 weeks. Total Time Total Time Spent Total Time Spent (In Minutes): 20 Discharge Plan Discharge Items Patient Disposition: Home - Self-Care Reason For Visit: ACUTE APPENDICITIS Discharge Diagnosis: laparoscopic appendectomy Condition on Discharge: Fair Activity: Per Instructions section Lifting: No more than 10 pounds Bathing Comment: may shower; no soaking in tubs/pools Exercise/Sports: Wait until after follow-up appointment Driving/Machine Use: do not resume driving while taking narcotics for pain Non-emergency contact: Surgeon Call non-emergency contact if: you have any medication questions, your symptoms worsen, your pain is not controlled, your pain is worsening, your pain is unusual for you, you have a fever, your temperature is above 101.5, your wound has increased redness, your wound has increased drainage and your wound pain has increased Follow-up/Referrals: Omero Barnett, [Physician] - (Please call to schedule follow up in clinic within 1-2 weeks) Vin Panda MD [Primary Care Provider] - Diet: Regular Addtl Attending Provider Instructions: You may purchase Tylenol and/or Ibuprofen over the counter if needed for additional pain control. -Tylenol 650mg orally every 4-6 hours, as needed for pain. Do NOT exceed more than 3 grams of Acetaminophen within a 24 hour time period. -Ibuprofen 200mg-600mg orally every 6-8 hours, as needed for pain. Take with food. You have small white bandages over your incisions called steri-strips. You may shower with these on. They will tend to fall off on their own within 7-10 days. Please complete the full course of antibiotic prescribed to you. Pending Studies at Discharge: Yes Studies:: surgical pathology Stand-Alone Forms: My [facility] [employer], Work/School Release (Inpt), Smoking Cessation Medications and DC Order Prescriptions: New oxycodone 5 mg tablet 5 - 10 mg PO .[id number] PRN (Reason: pain, for initial therapy, max 6 tabs per day) Qty: 15 RF: 0 amoxicillin-pot clavulanate [Augmentin] 875-125 mg tablet 1 tab PO BID Qty: 14 RF: 0 Continued methocarbamol 500 mg Tablet 500 mg PO UD PRN (Reason: Muscle Pain) RF: 0 polyethylene glycol 3350 [Miralax] 17 gram Powder In Packet 17 g PO DAILY PRN (Reason: Constipation) RF: 0 citalopram 10 mg Tablet 0 mg PO DAILY RF: 0 hydroxyzine pamoate 25 mg Capsule 25 mg PO DAILY PRN (Reason: Anxiety) RF: 0 Discharge Orders: Discharge Order (Routine); Ordered 07/22/20 Ordered By: Jana Reeves Admission Data Admit Date/Time: 07/21/20 00:19 Attending Provider: Omero Barentt Admit Provider: Omero Barnett Primary Care Provider: Vin Panda Other Providers: Omero Barnett Other Interventions: Discharge Summary Assessment (RN) Last Done: 07/22/20 10:36 Coding Level of Care Code D/C Day Management <30 mins Diagnoses Appendicitis K35.32 Acute appendicitis type: with localized peritonitis Appendicitis abscess presence: without abscess Appendicitis gangrene presence: with gangrene Appendicitis perforation presence: with perforation Appendicitis type: acute appendicitis
== END 2020-07-22 12:03 | disposition home or self-care (01) ==
LOC: ED 20:18 → OR 07-21 00:10 → 3W 07-21 00:10